=== PATIENT | male | born 1990 | race African-American/Black ===

== ENCOUNTER 2020-04-27 14:16 | Emergency (ER) | payer SELFPAY ==
[~2020-04-27] VITALS: Ht 180.3 cm; Wt 138.6 kg
[2020-04-27 14:40] VITALS: BP 119/80; TEMP 98
[2020-04-27 16:28] VITALS: PULSE 87
== END 2020-04-27 16:27 | disposition home or self-care (01) ==
LOC: COL.ER 14:16
DX: U07.1 COVID-19 (principal)

== ENCOUNTER 2021-12-03 16:17 | Emergency (ER) | payer SELFPAY ==
[~2021-12-03] VITALS: Ht 180.3 cm; Wt 141.4 kg
[2021-12-03] MEDS ORDERED: GLUCOPHAGE500 MG/TAB PO (16:30)
[2021-12-03 17:49] LABS: COLLECTION METHOD CLEAN CATCH
[2021-12-03 18:04] LABS: URINE APPEARANCE Clear (CLEAR/HAZY); URINE BLOOD 2+ (NEGATIVE); URINE COLOR Yellow (YELLOW); URINE GLUCOSE TRACE (NEGATIVE); URINE KETONE 4+ (NEGATIVE); URINE NITRATE Negative (NEGATIVE); URINE PROTEIN(semi-quant) 2+ (NEGATIVE); URINE UROBILINOGEN 0.2 E.U/dL (0.2-1.0)
[2021-12-03 18:05] LABS: MUCOUS Present (NOT PRESENT); SQUAMOUS EPITHELIAL None Seen /hpf (0-10); URINE BACTERIA None Seen /hpf (NONE SEEN)
[2021-12-03 18:24] LABS: BASO % 0.2 % (0.0-2.0); GRAN # 7.9 K/mm3 (1.4-6.5); GRAN % 87.9 % (42.2-75.2); HEMATOCRIT 45.4 % (42.0-52.0); HEMOGLOBIN 15.5 g/dl (13.5-18.0); LYMPH # 0.7 K/mm3 (1.2-3.4); LYMPH % 7.8 % (20.0-51.0); MEAN CELL VOLUME 92 fl (80.0-100.0); MEAN CORPUSCULAR HEMOGLOBIN 31 pg (27-31); MEAN CORPUSCULAR HGB CONC 34 g/dl (33.0-37.0); MEAN PLATELET VOLUME 9.2 fl (7.4-10.4); MONO # 0.4 K/mm3 (0.1-0.6); MONO % 3.9 % (1.7-9.3); PLATELET COUNT 305 K/mm3 (130-400); RED BLOOD COUNT 4.95 M/mm3 (4.20-5.60); REDCELL DISTRIBUTION WIDTH-CV 12.3 % (11.5-14.5)
[2021-12-03 18:43] LABS: ALBUMIN 4.3 gm/dL (3.5-5.0); BILIRUBIN,TOTAL 0.7 mg/dL (0.2-1.2); C-REACTIVE PROTEIN 0.85 mg/dL (0.00-0.50); CREATININE, serum 0.93 mg/dL (0.72-1.25); POTASSIUM 3.6 mmol/L (3.5-4.5)
[2021-12-03 20:05] VITALS: BP 150/89; PULSE 90
== END 2021-12-03 20:09 | disposition home or self-care (01) ==
LOC: COL.ER 16:17
PROVIDERS: Nurse Practitioner
DX: R10.32 Left lower quadrant pain (principal); R11.2 Nausea with vomiting, unspecified
CPT/HCPCS: J1885; J2405; J7030